=== PATIENT | male | born 1945 ===

== ENCOUNTER 2022-02-24 01:55 | Outpatient (CLI) | payer MEDICARE, BC, SELFPAY ==
[2022-02-24 14:12] LABS: Abs Immature Grans 0.01 10^3/uL (0.0-0.06); Absolute Basophil Count 0.02 10^3/uL (0.0-0.2); Absolute Eosinophil Count 0.18 10^3/uL (0.0-0.7); Absolute Lymphocyte Count 0.73 10^3/uL (1.2-3.4); Absolute Monocyte Count 0.25 10^3/uL (0.1-0.8); Absolute Neutrophil Count 2.98 10^3/uL (1.2-6.7); Basophils % 0.5; Eosinophils % 4.3; HCT 38.4 % (40.0-50.0); HGB 12.9 g/dL (13.5-17.5); Immature Grans % 0.2; Lymphocytes % 17.5; MCH 36.2 pg (27.0-33.0); MCHC 33.6 % (32.0-36.0); MCV 108 fL (80-95); MPV 8.1 fL (8.0-11.0); Neutrophils % 71.5; Platelet Count 104 10^3/uL (130-400); RBC 3.56 10^6/uL (4.36-5.78); RDW 12.6 % (11.8-14.1); RDW-SD 50.6 fL; WBC 4.17 10^3/uL (4.4-10.8)
[2022-02-24 14:39] LABS: ALT 38 U/L (16-63); AST 22 U/L (15-37); Alkaline Phosphatase 75 U/L (46-116); Anion Gap 8.3 mmol/L (3-11); BUN 16 mg/dL (7-18); Bilirubin, Total 0.6 mg/dL (0.2-1.0); CO2 29.7 mmol/L (21.0-32.0); CREATININE 0.8 mg/dL (0.70-1.30); Chloride 108 mmol/L (98-107); Glucose 97 mg/dL (74-106); Sodium 146 mmol/L (136-145)
[2022-02-24 14:50] LABS: Diff Comment RBC Morph Reviewed; Macrocytosis 2+
== END 2022-02-24 01:56 | disposition home or self-care (01) ==
LOC: LBO 01:56
PROVIDERS: Visit Provider Registered Nurse Critical Care Medicine
DX: D64.9 Anemia, unspecified (principal); D69.6 Thrombocytopenia, unspecified
CPT/HCPCS: 36415; 80053; 85025

== ENCOUNTER 2023-02-15 03:57 | Outpatient (CLI) | payer MEDICARE, BC, SELFPAY ==
[2023-02-15 14:15] LABS: Abs Immature Grans 0.03 10^3/uL (0.0-0.06); Absolute Basophil Count 0.02 10^3/uL (0.0-0.2); Absolute Eosinophil Count 0.15 10^3/uL (0.0-0.7); Absolute Lymphocyte Count 0.87 10^3/uL (1.2-3.4); Absolute Monocyte Count 0.42 10^3/uL (0.1-0.8); Absolute Neutrophil Count 5.18 10^3/uL (1.2-6.7); Basophils % 0.3; Eosinophils % 2.2; HCT 40.9 % (40.0-50.0); HGB 14.6 g/dL (13.5-17.5); Immature Grans % 0.4; MCH 37.8 pg (27.0-33.0); MCHC 35.7 % (32.0-36.0); MCV 106 fL (80-95); MPV 7.9 fL (8.0-11.0); Monocytes % 6.3; Neutrophils % 77.8; Platelet Count 278 10^3/uL (130-400); RBC 3.86 10^6/uL (4.36-5.78); RDW 12.5 % (11.8-14.1); RDW-SD 49.4 fL; WBC 6.67 10^3/uL (4.4-10.8)
[2023-02-15 14:55] LABS: ALT 40 U/L (16-63); AST 25 U/L (15-37); Albumin 3.9 g/dL (3.4-5.0); Alkaline Phosphatase 95 U/L (46-116); Anion Gap 6.5 mmol/L (3-11); BUN 20 mg/dL (7-18); Bilirubin, Total 0.5 mg/dL (0.2-1.0); CO2 29.5 mmol/L (21.0-32.0); CREATININE 0.9 mg/dL (0.70-1.30); Calcium 8.9 mg/dL (8.5-10.1); Chloride 106 mmol/L (98-107); Estimated GFR 86.88 (mL/min/1.73m2); Glucose 98 mg/dL (74-106); Potassium 4.3 mmol/L (3.5-5.1); Sodium 142 mmol/L (136-145); Total Protein 7.2 g/dL (6.4-8.2)
[2023-02-15 15:59] LABS: Iron 46 ug/dL (65-175); Total Iron Binding Capacity 191 ug/dL (250-450); Transferrin Sat 24 % (20-55)
[2023-02-16 09:46] LABS: CEA 17.7 ng/mL (See Note)
== END 2023-02-15 03:58 | disposition home or self-care (01) ==
DX: C18.7 Malignant neoplasm of sigmoid colon (principal); C78.7 Secondary malignant neoplasm of liver and intrahepatic bile duct; D64.9 Anemia, unspecified
CPT/HCPCS: 36415; 80053; 82378; 83540; 83550; 85025

== ENCOUNTER 2024-03-12 13:51 | Outpatient (CLI) | payer MEDICARE, BC, SELFPAY ==
[2024-03-12 12:56] LABS: Abs Immature Grans 0.01 10^3/uL (0.0-0.06); Absolute Basophil Count 0.01 10^3/uL (0.0-0.2); Absolute Eosinophil Count 0.04 10^3/uL (0.0-0.7); Absolute Lymphocyte Count 0.55 10^3/uL (1.2-3.4); Absolute Monocyte Count 0.21 10^3/uL (0.1-0.8); Basophils % 0.6 %; Eosinophils % 2.5 %; HCT 31.3 % (40.0-50.0); HGB 10.5 g/dL (13.5-17.5); Immature Grans % 0.6 %; MCH 37.9 pg (27.0-33.0); MCHC 33.5 % (32.0-36.0); MCV 113 fL (80-95); MPV 10.2 fL (8.0-11.0); Neutrophils % 49.3 %; Platelet Count 113 10^3/uL (130-400); RBC 2.77 10^6/uL (4.36-5.78); RDW 16.8 % (11.8-14.1); RDW-SD 69.8 fL
[2024-03-12 13:26] LABS: Diff Comment Agrees w/ Instrument
[2024-03-12 13:27] LABS: Macrocytosis 2+
[2024-03-12 13:40] LABS: WBC 1.62 10^3/uL (4.4-10.8)
== END 2024-03-12 13:52 | disposition home or self-care (01) ==
PROVIDERS: Visit Provider Nurse Practitioner Family
DX: C78.7 Secondary malignant neoplasm of liver and intrahepatic bile duct (principal)
CPT/HCPCS: 36415; 85025